=== PATIENT | female | born 1970 | race Caucasian/White ===

== ENCOUNTER 2019-03-10 17:53 | Emergency (ER) | payer SELFPAY ==
[~2019-03-10] VITALS: Ht 160 cm; Wt 72.4 kg
[2019-03-10 18:39] VITALS: Ht 160 cm; Wt 72.4 kg
[2019-03-10] MEDS ORDERED: HYDR25TA6 PO ×2 (20:43→21:32)
[2019-03-10] MEDS ORDERED: IBUP-1542 PO ×2 (20:43→21:32)
[2019-03-10] MEDS ORDERED: IBUPROFEN 800 MG TAB PO ONE (21:00)
[2019-03-10] MEDS ORDERED: NICARDipine HCL 30 MG CAPSULE PO ONE (21:00)
[2019-03-10 21:37] VITALS: BP 166/97; PULSE 90; RESP 16
--- NOTE | 2019-03-10 22:15 | ERD ---
ER Documentation Chief Complaint Chief Complaint C/O HTN X'S 3 DAYS HPI Patient is a 48-year-old female with no medical problems who presents with high blood pressure. The patient said that she felt bad on Saturday and did not sleep well. The patient has had symptoms for the past 3 days. The patient had headache. She tried aspirin. Upon review of old medical records this is the patient's first visit to the emergency department. She does not currently have a primary doctor. She denies having hypertension in the past but there is a family history of hypertension. ROS All systems reviewed and are negative except as per history of present illness. Medications Home Meds Active Scripts Ibuprofen* (Motrin*) 600 Mg Tab, 600 MG PO Q6H PRN for PAIN AND OR ELEVATED TE MP, #30 TAB Prov:EM NIELSEN MD 03/10/19 Hydrochlorothiazide* (Hydrochlorothiazide*) 25 Mg Tab, 25 MG PO DAILY, #30 TAB Prov:EM NIELSEN MD 03/10/19 Hydrochlorothiazide* (Hydrochlorothiazide*) 25 Mg Tab, 25 MG PO DAILY, #30 TAB Prov:EM NIELSEN MD 03/10/19 Ibuprofen* (Motrin*) 600 Mg Tab, 600 MG PO Q6H PRN for PAIN AND OR ELEVATED TEMP, #30 TAB Prov:EM NIELSEN MD 03/10/19 PMhx/Soc Medical and Surgical Hx: pt denies Medical Hx History of Surgery: Yes ( ) Hx Alcohol Use: No Hx Substance Use: No Hx Tobacco Use: No Smoking Status: Never smoker FmHx Family History: diabetes Physical Exam Vitals Vital Signs Date Temp Pulse Resp B/P (MAP) Pulse Ox O2 O2 Flow FiO2 Time Delivery Rate 03/10/19 90 16 166/97 100 Room Air 21:37 (120) 03/10/19 63 16 197/107 100 Room Air 20:55 (137) 03/10/19 98.6 76 18 227/121 100 18:39 (156) Physical Exam Const: No acute distress Head: Atraumatic Eyes: Normal Conjunctiva ENT: Normal External Ears, Nose and Mouth. Neck: Full range of motion. No meningismus. Resp: Clear to auscultation bilaterally Cardio: Regular rate and rhythm, no murmurs Abd: Soft, non tender, non distended. Normal bowel sounds Skin: No petechiae or rashes Back: No midline or flank tenderness Ext: No cyanosis, or edema Neur: Awake and alert Psych: Normal Mood and Affect Results 24 hrs Current Medications Medications Dose Sig/Jc Start Time Status Last (Trade) Ordered Route PRN Stop Time Admin Dose Reason Admin Nicardipine 30 mg ONCE ONCE 03/10/19 DC 03/10/19 HCl PO 21:00 20:51 (Cardene) 03/10/19 21:01 Ibuprofen 800 mg ONCE ONCE 03/10/19 DC 03/10/19 (Motrin) PO 21:00 20:50 03/10/19 21:01 Procedures/[facility] Patient is a 49-year-old female who presents with acute hypertension. The patient will be given Cardene and ibuprofen as she is complaining of some minor back pain. At this point I doubt serious etiology and I believe she has un derlying essential hypertension. I doubt acute coronary syndrome or stroke or dissection. The patient will need to follow-up closely with the local clinics within 24 to 48 hours that she does not currently have a primary doctor. She can return for any worsening symptoms. Departure Diagnosis: Primary Impression: Back pain Back pain location: back pain in unspecified location Chronicity: acute Back pain laterality: unspecified Qualified Codes: M54.9 - Dorsalgia, unspecified Additional Impression: Hypertension Hypertension type: essential hypertension Qualified Codes: I10 - Essential (primary) hypertension Condition: Fair Patient Instructions: High Blood Pressure (Hypertension), Back Pain (Acute Or Chronic) [facility] Usted se gimenez hecho un examen mdico de control que le indica que no est en marc condicin que requiera tratamiento urgente en el Departamento de Emergencia. Un estudio ms profundo y el tratamiento de govea condicin pueden esperar sin ningn riesgo hasta que usted sea atendida/o en el consultorio de govea mdico o marc clnica. Es responsabilidad suya arreglar marc doni para el seguimiento del atif. MANEJO DE CONDICIONES NO URGENTES EN EL FUTURO 1) Si usted tiene un mdico de atencin primaria: Usted debera llamar a govea mdico de atencin primaria antes de venir al departamento de emergencia. Despus de las horas de consultorio, govea doctor o govea asociado/a est disponible por telfono. El mdico o enfermero de leatha en el servicio telefnico puede asesorarle por bhavin medio para atender el problema, o atif contrario se puede programar marc doni. 2) Si usted no tiene un mdico de atencin primaria: Llame al mdico o clnica de referencia que aparece abajo marianna las horas de consultorio para hacer marc doni para que le vean. CLINICAS: [place] [address] [phone] [facility] [phone] [place] [address] [phone] [place] [address] [phone] [place] [address] [phone] [facility] [phone] Additional Instructions: Llame al doctor nombrado abajo (Referral Sources) MAANA y gaby marc DONI PARA DENTRO DE MARC SEMANA. Dgale a la secretaria que nosotros le instruimos hacer esta doni.Avise o llame si govea condicin se empeora antes de la doni. EM NIELSEN MD Mar 10, 2019 22:15
== END 2019-03-10 21:42 | disposition home or self-care (01) ==
LOC: EDBD 17:53 → E/R 17:53
DX: M54.9 Dorsalgia, unspecified (principal); I10 Essential (primary) hypertension
CPT/HCPCS: 99283